=== PATIENT | female | born 1960 | race Caucasian/White ===

== ENCOUNTER 2018-12-05 18:42 | Inpatient (IN) | payer BC ==
[2018-12-05] MEDS ORDERED: Ondansetron 4 MG/2 ML SDV IVPUSH ONE ×2 (19:39→20:50)
[2018-12-05] MEDS ORDERED: HYDROmorphone 1 MG/ML Syringe IVPUSH ONE ×2 (19:39→20:50)
--- NOTE | 2018-12-05 20:08 | EDM.PDOC ---
ED HPI GENERAL MEDICAL PROBLEM - General Chief Complaint: Abdominal Pain Stated Complaint: ABDOMINAL PAIN Time Seen by Provider: 12/05/18 19:25 Source of Information: Reports: Patient, Family History Limitations: Reports: No Limitations - History of Present Illness INITIAL COMMENTS - FREE TEXT/NARRATIVE: This is a 58-year-old female. [place] and she apparently has had several episodes of lower abdominal pain that seemed to come and go. Then since last night it has come and continued to come. She is having nausea and vomiting since this afternoon. She has a history of diverticulitis in the past and it feels like diverticulitis to her now. She thinks she's had some fever that was not been documented and she is also had some chills. She's had a normal bowel movement today with no blood. She still has her gallbladder and she still has her appendix. She complains of abdominal pain severe that comes and goes with severe cramping and between all across the lower abdomen. She is in moderate distress. Lower Abdomen Pain Score (Numeric/FACES): 10 - Related Data Allergies Allergy/AdvReac Type Severity Reaction Status Date / Time Sulfa (Sulfonamide Allergy Rash Verified 12/05/18 19:14 Antibiotics) hydromorphone [From Dilaudid] AdvReac Hypotension Verified 12/06/18 01:20 Home Meds: Home Meds Aspirin 81 mg PO DAILY 08/08/15 [History] Levothyroxine Sodium [Synthroid] 50 mcg PO ACBREAKFAST 08/08/15 [History] Lisinopril/Hydrochlorothiazide [Lisinopril-Hctz 10-12.5 mg Tab] 10 - 12.5 mg PO DAILY 08/08/15 [History] Omeprazole [Prilosec] 20 mg PO DAILY 08/08/15 [History] Ondansetron [Zofran ODT] 4 mg PO Q6H PRN #20 tab.dis 08/08/15 [Rx] Simvastatin [Zocor] 20 mg PO DAILY 08/08/15 [History] Psyllium Husk [Metamucil] 1 cap PO DAILY 08/18/15 [History] Past Medical History HEENT History: Reports: Impaired Vision Other HEENT History: wears eyeglasses Cardiovascular History: Reports: High Cholesterol, Hypertension Gastrointestinal History: Reports: Diverticulosis Other Gastrointestinal History: diverticulitis Dx'd 10 days ago--no prior Hx of. 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: Musculoskeletal History: Reports: Back Pain, Chronic Other Musculoskeletal History: spurs on back Endocrine/Metabolic History: Reports: Hypothyroidism - Infectious Disease History Infectious Disease History: Reports: Chicken Pox, Mumps - Past Surgical History GI Surgical History: Reports: Colonoscopy, EGD Female Surgical History: Reports: Hysterectomy Social & Family History - Family History Family Medical History: Noncontributory - Tobacco Use Smoking Status *Q: Never Smoker - Caffeine Use Caffeine Use: Reports: Coffee - Recreational Drug Use Recreational Drug Use: No - Living Situation & Occupation Living situation: Reports: with Spouse ED ROS GENERAL - Review of Systems Review Of Systems: See Below Constitutional: Reports: Fever, Chills HEENT: Reports: No Symptoms Respiratory: Reports: No Symptoms Cardiovascular: Reports: No Symptoms Endocrine: Reports: No Symptoms GI/Abdominal: Reports: Abdominal Pain, Anorexia, Nausea, Vomiting. Denies: Black Stool, Bloody Stool : Reports: No Symptoms Musculoskeletal: Reports: No Symptoms Skin: Reports: No Symptoms Neurological: Reports: No Symptoms Psychiatric: Reports: No Symptoms Hematologic/Lymphatic: Reports: No Symptoms ED EXAM, GI/ABD - Physical Exam Exam: See Below Exam Limited By: No Limitations General Appearance: Alert, WD/WN, Moderate Distress Eyes: Bilateral: Normal Appearance Ears: Normal External Exam Nose: Normal Inspection Throat/Mouth: Normal Inspection, Normal Lips, Normal Voice, No Airway Compromise Head: Normocephalic Neck: Supple Respiratory/Chest: No Respiratory Distress, Lungs Clear, Normal Breath Sounds Cardiovascular: Regular Rate, Rhythm, No Murmur GI/Abdominal Exam: No Distention, Other (She is not distended, she has no bowel sounds, the upper abdomen is not significantly tender though she does have guarding, the lower abdomen she does have guarding and I cannot determine rebound due to her guarding, she tends to lay down with her legs flexed for comfort or she sits up and bends over to keep her abdomen from stretching.) Back Exam: Full Range of Motion Extremities: Normal Inspection, Normal Range of Motion Neurological: Alert, Oriented Psychiatric: Anxious Skin Exam: Warm, Dry EKG INTERPRETATION EKG Date: 12/05/18 Time: 23:00 EKG Interpretation Comments: EKG shows a sinus rhythm rate of 68. I do not believe there is an old inferior IA or anterior infarct since these are not Q waves in the leads. Comparing it to an EKG from 2015 the morphology looks the same other than lead placement. I do not see any acute ST or T-wave changes and I do not see any ischemia noted. Course - Vital Signs Last Recorded V/S: Last Vital Signs Temp 97.4 F 12/06/18 00:45 Pulse 92 12/05/18 19:11 Resp 12 12/06/18 03:46 BP 96/57 L 12/06/18 03:46 Pulse Ox 96 12/06/18 03:46 - Orders/Labs/Meds Orders: Active Orders 24 hr Category Date Time Status Admission Status [Patient Status] [ADT] Routine ADT 12/05/18 23:47 Active Oxygen Therapy, ED [RC] ASDIRECTED Care 12/05/18 20:27 Active Abdomen Pelvis w Cont [CT] Stat Exams 12/05/18 20:03 Taken Chest 1V Frontal [CR] Stat Exams 12/05/18 22:48 Taken CULTURE BLOOD [BC] Stat Lab 12/05/18 20:03 Received CULTURE BLOOD [BC] Stat Lab 12/05/18 20:10 Received PROCALCITONIN [REF] Stat Lab 12/05/18 20:05 Received Norepinephrine [Levophed] 4 mg Med 12/05/18 23:45 Active Dextrose 5% in Water 246 ml IV TITRATE Piperacillin/Tazobactam [Piperacil-Tazobact] 4.5 gm Med 12/05/18 22:15 Active Sodium Chloride 0.9% [Normal Saline] 100 ml IV Q8H Blood Culture x2 Reflex Set [OM.PC] Stat Oth 12/05/18 19:40 Ordered Medication Orders Fentanyl (Sublimaze) 50 mcg IVPUSH Q1H PRN PRN Reason: Pain Last Admin: 12/06/18 02:22 Dose: 50 mcg Admin: 12/06/18 00:35 Dose: 50 mcg Piperacillin Sod/Tazobactam (Sod 4.5 gm/ Sodium Chloride) 100 mls @ 25 mls/hr IV Q8H KELLI Last Admin: 12/05/18 22:25 Dose: 25 mls/hr Norepinephrine Bitartrate 4 mg (/ Dextrose/Water) 250 mls @ 7.5 mls/hr IV TITRATE KELLI; Protocol Last Titration: 12/06/18 03:43 Dose: 2.93 mcg/min, 11 mls/hr Titration: 12/06/18 03:32 Dose: 2.66 mcg/min, 10 mls/hr Titration: 12/06/18 02:47 Dose: 2.4 mcg/min, 9 mls/hr Titration: 12/06/18 01:31 Dose: 2.13 mcg/min, 8 mls/hr Titration: 12/06/18 01:07 Dose: 7 mcg/min, 26.25 mls/hr Titration: 12/06/18 00:46 Dose: 6 mcg/min, 22.5 mls/hr Titration: 12/06/18 00:30 Dose: 5 mcg/min, 18.75 mls/hr Titration: 12/06/18 00:22 Dose: 4 mcg/min, 15 mls/hr Titration: 12/06/18 00:16 Dose: 3 mcg/min, 11.25 mls/hr Admin: 12/06/18 00:08 Dose: 2 mcg/min, 7.5 mls/hr Sodium Chloride (Normal Saline) 1,000 mls @ 50 mls/hr IV ASDIRECTED KELLI Last Infusion: 12/06/18 01:13 Dose: 100 mls/hr Admin: 12/06/18 00:20 Dose: 50 mls/hr Ketorolac Tromethamine (Toradol) 30 mg IVPUSH ONETIME PRN PRN Reason: Pain Labs: Laboratory Tests 12/05/18 12/05/18 12/05/18 Range/Units 20:03 20:03 20:03 WBC 8.23 (3.98-10.04) K/mm3 RBC 4.17 (3.98-5.22) M/mm3 Hgb 11.4 (11.2-15.7) gm/L Hct 35.4 (34.1-44.9) % MCV 84.9 (79.4-94.8) fl MCH 27.3 (25.6-32.2) pg MCHC 32.2 (32.2-35.5) g/dl RDW Std Deviation 44.0 (36.4-46.3) fL Plt Count 271 (182-369) K/mm3 MPV 9.1 L (9.4-12.3) fl Neut % (Auto) 88.5 H (34.0-71.1) % Lymph % (Auto) 7.3 L (19.3-51.7) % Howard % (Auto) 3.8 L (4.7-12.5) % Eos % (Auto) 0.2 L (0.7-5.8) Baso % (Auto) 0.1 (0.1-1.2) % Neut # (Auto) 7.28 H (1.56-6.13) K/mm3 Lymph # (Auto) 0.60 L (1.18-3.74) K/mm3 Howard # (Auto) 0.31 (0.24-0.36) K/mm3 Eos # (Auto) 0.02 L (0.04-0.36) K/mm3 Baso # (Auto) 0.01 (0.01-0.08) K/mm3 Manual Slide Review Abnormal smear D-Dimer, Quantitative (0.19-0.50) mg/L Sodium 139 (136-145) mEq/L Potassium 3.5 (3.5-5.1) mEq/L Chloride 103 (98-107) mEq/L Carbon Dioxide 26 (21-32) mEq/L Anion Gap 13.5 (5-15) BUN 14 (7-18) mg/dL Creatinine 0.9 (0.55-1.02) mg/dL Est Cr Clr Drug Dosing 62.23 mL/min Estimated GFR (MDRD) > 60 (>60) mL/min BUN/Creatinine Ratio 15.6 (14-18) Glucose 109 H (74-106) mg/dL Lactic Acid 0.9 (0.4-2.0) mmol/L Calcium 8.9 (8.5-10.1) mg/dL Total Bilirubin 0.4 (0.2-1.0) mg/dL AST 28 (15-37) U/L ALT 30 (14-59) U/L Alkaline Phosphatase 64 (46-116) U/L Troponin I (0.00-0.056) ng/mL C-Reactive Protein 2.0 H* (<1.0) mg/dL Total Protein 6.9 (6.4-8.2) g/dl Albumin 3.8 (3.4-5.0) g/dl Globulin 3.1 gm/dL Albumin/Globulin Ratio 1.2 (1-2) Lipase 203 (73-393) U/L Urine Color (Yellow) Urine Appearance (Clear) Urine pH (5.0-8.0) Ur Specific [place] (1.005-1.030) Urine Protein (Negative) Urine Glucose (UA) (Negative) Urine Ketones (Negative) Urine Occult Blood (Negative) Urine Nitrite (Negative) Urine Bilirubin (Negative) Urine Urobilinogen (0.2-1.0) Ur Leukocyte Esterase (Negative) Urine RBC (0-5) /hpf Urine WBC (0-5) /hpf Ur Epithelial Cells (0-5) /hpf Urine Bacteria (FEW) /hpf Urine Mucus (FEW) /hpf 12/05/18 12/05/18 12/05/18 Range/Units 20:05 20:05 20:15 WBC (3.98-10.04) K/mm3 RBC (3.98-5.22) M/mm3 Hgb (11.2-15.7) gm/L Hct (34.1-44.9) % MCV (79.4-94.8) fl MCH (25.6-32.2) pg MCHC (32.2-35.5) g/dl RDW Std Deviation (36.4-46.3) fL Plt Count (182-369) K/mm3 MPV (9.4-12.3) fl Neut % (Auto) (34.0-71.1) % Lymph % (Auto) (19.3-51.7) % Howard % (Auto) (4.7-12.5) % Eos % (Auto) (0.7-5.8) Baso % (Auto) (0.1-1.2) % Neut # (Auto) (1.56-6.13) K/mm3 Lymph # (Auto) (1.18-3.74) K/mm3 Howard # (Auto) (0.24-0.36) K/mm3 Eos # (Auto) (0.04-0.36) K/mm3 Baso # (Auto) (0.01-0.08) K/mm3 Manual Slide Review D-Dimer, Quantitative 0.55 H (0.19-0.50) mg/L Sodium (136-145) mEq/L Potassium (3.5-5.1) mEq/L Chloride (98-107) mEq/L Carbon Dioxide (21-32) mEq/L Anion Gap (5-15) BUN (7-18) mg/dL Creatinine (0.55-1.02) mg/dL Est Cr Clr Drug Dosing mL/min Estimated GFR (MDRD) (>60) mL/min BUN/Creatinine Ratio (14-18) Glucose (74-106) mg/dL Lactic Acid (0.4-2.0) mmol/L Calcium (8.5-10.1) mg/dL Total Bilirubin (0.2-1.0) mg/dL AST (15-37) U/L ALT (14-59) U/L Alkaline Phosphatase (46-116) U/L Troponin I < 0.017 (0.00-0.056) ng/mL C-Reactive Protein (<1.0) mg/dL Total Protein (6.4-8.2) g/dl Albumin (3.4-5.0) g/dl Globulin gm/dL Albumin/Globulin Ratio (1-2) Lipase (73-393) U/L Urine Color Yellow (Yellow) Urine Appearance Slt cloudy H (Clear) Urine pH 7.5 (5.0-8.0) Ur Specific [place] 1.015 (1.005-1.030) Urine Protein 1+ H (Negative) Urine Glucose (UA) Negative (Negative) Urine Ketones Trace H (Negative) Urine Occult Blood 1+ H (Negative) Urine Nitrite Negative (Negative) Urine Bilirubin Negative (Negative) Urine Urobilinogen 0.2 (0.2-1.0) Ur Leukocyte Esterase Negative (Negative) Urine RBC 20-30 H (0-5) /hpf Urine WBC 0-5 (0-5) /hpf Ur Epithelial Cells 0-5 (0-5) /hpf Urine Bacteria Few H (FEW) /hpf Urine Mucus Not seen (FEW) /hpf Meds: Medications Generic Name Dose Route Start Last Admin Trade Name Freq PRN Reason Stop Dose Admin Fentanyl 50 mcg 12/06/18 00:40 12/06/18 02:22 Sublimaze IVPUSH 50 mcg Q1H PRN Administration Pain Piperacillin Sod/Tazobactam 100 mls @ 25 mls/hr 12/05/18 22:15 12/05/18 22:25 Sod 4.5 gm/ Sodium Chloride IV 25 mls/hr Q8H KELLI Administration Norepinephrine Bitartrate 4 mg 250 mls @ 7.5 mls/hr 12/05/18 23:45 12/06/18 03:43 / Dextrose/Water IV 2.93 mcg/min TITRATE KELLI 11 mls/hr Titration Protocol 2 MCG/MIN Sodium Chloride 1,000 mls @ 50 mls/hr 12/06/18 00:30 12/06/18 01:13 Normal Saline IV 100 mls/hr ASDIRECTED KELLI Infusion Ketorolac Tromethamine 30 mg 12/06/18 04:14 Toradol IVPUSH ONETIME PRN Pain Discontinued Medications Generic Name Dose Route Start Last Admin Trade Name Freq PRN Reason Stop Dose Admin Fentanyl Confirm 12/06/18 00:34 12/06/18 00:59 Sublimaze Administered 12/06/18 00:35 Not Given Dose 100 mcg .ROUTE .STK-MED ONE Hydromorphone HCl 1 mg 12/05/18 19:39 12/05/18 20:00 Dilaudid IVPUSH 12/05/18 19:40 1 mg ONETIME ONE Administration Hydromorphone HCl 1 mg 12/05/18 20:50 12/05/18 20:59 Dilaudid IVPUSH 12/05/18 20:51 1 mg ONETIME ONE Administration Sodium Chloride 1,000 mls @ 500 mls/hr 12/05/18 19:45 12/05/18 21:31 Normal Saline IV Infused ASDIRECTED KELLI Infusion Sodium Chloride 1,000 mls @ 500 mls/hr 12/05/18 22:00 12/05/18 23:20 Normal Saline IV 999 mls/hr ASDIRECTED KELLI Infusion Sodium Chloride 1,000 mls @ 999 mls/hr 12/05/18 23:10 12/05/18 23:10 Normal Saline IV 12/06/18 00:10 999 mls/hr ONETIME ONE Administration Iopamidol 100 ml 12/05/18 20:27 Isovue-370 (76%) IV 12/05/18 20:28 ONETIME ONE Ketorolac Tromethamine 30 mg 12/05/18 21:37 12/05/18 21:49 Toradol IVPUSH 12/05/18 21:38 30 mg ONETIME ONE Administration Naloxone HCl 0.2 mg 12/05/18 23:40 12/05/18 23:43 Narcan IVPUSH 12/05/18 23:41 0.2 mg ONETIME ONE Administration Ondansetron HCl 4 mg 12/05/18 19:39 12/05/18 20:00 Zofran IVPUSH 12/05/18 19:40 4 mg ONETIME ONE Administration Ondansetron HCl 4 mg 12/05/18 20:50 12/05/18 21:26 Zofran IVPUSH 12/05/18 20:51 Not Given ONETIME ONE - Radiology Interpretation Free Text/Narrative:: CT scan suggests a lot of diverticulosis and when I called the radiologist to relook at the lower abdomen and sigmoid colon he felt like she could have some swelling going on and possibly diverticulitis though it is somewhat early. Chest x-ray suggests maybe a slight infiltrate in the right base. I've no comparative films to look at. She does have a hiatal hernia with gastric content but her heart size does appear to be larger than normal. - Re-Assessments/Exams Free Text/Narrative Re-Assessment/Exam: 12/05/18 21:50 Inside believe that her clinical picture suggests diverticulitis I'm going to treat her like diverticulitis. I think it be best to put her in the hospital overnight and give her IV antibiotics and she's having problems with nausea and vomiting even though we have calmed her pain down. Her pain is in the lower abdomen typically where she has diverticulitis and she is running a low-grade fever. 12/05/18 22:09 I spoke to the radiologist again regarding her CT scan and he thinks that possibly she might have diverticulitis though it is not super apparent on the CT scan. I spoke to the family indicating that the numbers might not get her into the hospital and have her insurance pay but I'm going to give her some Zosyn IV and her blood pressures running about 89/59 and really give her some fluids and watch her for a little bit if her blood pressure doesn't come up and will consider putting her in observation overnight but if she seems to do okay we will discharge her home with some Augmentin and something for pain. We will watch her here for a while. 12/05/18 23:42 I have rechecked her records and I found a note where she had a hypotensive episode due to Dilaudid. When he tries 0 point to Narcan to see if that doesn't count of bump up her blood pressure and increase her mental status. I am concerned about her not responding to fluids were given her at least 2 L. I did give her some Zofran 4.5 g to start with because I believe she has early diverticulitis. I spoke to the family regarding her symptoms and her reaction to Dilaudid and they feel more comfortable putting her in the ICU as well. I did speak to Dr. Gant and he is willing to admit the patient to the ICU for further evaluation and treatment. 12/06/18 00:07 Started her on a norepinephrine drip to titrate the blood pressure to greater than 100 systolic. Once that occurs we'll back off both the IVs to 50 mL per hour and continue to monitor her blood pressures. I have written bridging orders for the patient for admission to the ICU. I have spoken with the family members and they're good with this plan. I am concerned because I don't know if this is a complete picture of the hypotension related to the Dilaudid IV or if she also has an early diverticulitis so we'll repeat the blood work in the morning as well as the C reactive protein and the lactic acid. Departure - Departure Time of Disposition: 00:30 Disposition: Admitted As Inpatient 64 Condition: Serious Clinical Impression: Hypoxemia, Sigmoid diverticulitis, Cardiomegaly Altered mental status Qualifiers: Altered mental status type: somnolence Qualified Code(s): R40.0 - Somnolence Abdominal pain Qualifiers: Abdominal location: left lower quadrant Qualified Code(s): R10.32 - Left lower quadrant pain Hypotension Qualifiers: Hypotension type: unspecified hypotension type Qualified Code(s): I95.9 - Hypotension, unspecified - Discharge Information ED Communication - ED Communication Date/Time Date: 12/05/18 Time Called: 23:47 - Discussed Case With (1) Discussed Case With (1): Admitting Provider Person/s Notified (1): Belle Gant (He will admitted to the ICU) - My Orders Last 24 Hours: My Active Orders 12/05/18 19:40 Blood Culture x2 Reflex Set [OM.PC] Stat 12/05/18 20:03 Abdomen Pelvis w Cont [CT] Stat CULTURE BLOOD [BC] Stat 12/05/18 20:05 PROCALCITONIN [REF] Stat 12/05/18 20:10 CULTURE BLOOD [BC] Stat 12/05/18 20:27 Oxygen Therapy, ED [RC] ASDIRECTED 12/05/18 22:15 Piperacillin/Tazobactam [Piperacil-Tazobact] 4.5 gm Sodium Chloride 0.9% [ Normal Saline] 100 ml IV Q8H 12/05/18 22:48 Chest 1V Frontal [CR] Stat 12/05/18 23:45 Norepinephrine [Levophed] 4 mg Dextrose 5% in Water 246 ml IV TITRATE 12/05/18 23:47 Admission Status [Patient Status] [ADT] Routine - Assessment/Plan Last 24 Hours: My Active Orders 12/05/18 19:40 Blood Culture x2 Reflex Set [OM.PC] Stat 12/05/18 20:03 Abdomen Pelvis w Cont [CT] Stat CULTURE BLOOD [BC] Stat 12/05/18 20:05 PROCALCITONIN [REF] Stat 12/05/18 20:10 CULTURE BLOOD [BC] Stat 12/05/18 20:27 Oxygen Therapy, ED [RC] ASDIRECTED 12/05/18 22:15 Piperacillin/Tazobactam [Piperacil-Tazobact] 4.5 gm Sodium Chloride 0.9% [ Normal Saline] 100 ml IV Q8H 12/05/18 22:48 Chest 1V Frontal [CR] Stat 12/05/18 23:45 Norepinephrine [Levophed] 4 mg Dextrose 5% in Water 246 ml IV TITRATE 12/05/18 23:47 Admission Status [Patient Status] [ADT] Routine
[2018-12-05] MEDS: Sodium Chloride 0.9% 1,000 ML IV SCH ×2 (20:12→21:50)
[2018-12-05] MEDS ORDERED: Iopamidol 755 Mg/ML 200 ML Bottle IV ONE (20:27)
[2018-12-05] MEDS ORDERED: Ketorolac 30 MG/ML SDV IVPUSH ONE (21:37)
[2018-12-05] MEDS ORDERED: Sodium Chloride 0.9% 1,000 ML IV SCH (22:00)
[2018-12-05] MEDS: Piperacillin/Tazobactam 4.5 GM in Sodium Chloride 0.9% 100 ML IV SCH (22:25)
[2018-12-05] MEDS ORDERED: Sodium Chloride 0.9% 1,000 ML IV ONE (23:10)
[2018-12-05] MEDS ORDERED: Naloxone 0.4 MG/ML SDV IVPUSH ONE (23:40)
[2018-12-06] MEDS: Norepinephrine 4 MG in Dextrose 5% in Water 246 ML IV SCH ×4 (00:08→07:18)
[2018-12-06] MEDS ORDERED: Sodium Chloride 0.9% 1,000 ML IV SCH ×2 (00:30→06:30)
[2018-12-06] MEDS ORDERED: fentaNYL 100 MCG/2 ML SDV ONE (00:34)
[2018-12-06] MEDS: fentaNYL 100 MCG/2 ML SDV IVPUSH PRN ×2 (00:35→02:22)
[2018-12-06] MEDS ORDERED: Ketorolac 30 MG/ML SDV IVPUSH PRN (04:14)
[2018-12-06] MEDS: Piperacillin/Tazobactam 4.5 GM in Sodium Chloride 0.9% 100 ML IV SCH ×3 (06:00→22:00)
[2018-12-06] MEDS ORDERED: Ondansetron 4 MG/2 ML SDV IVPUSH PRN (07:53)
[2018-12-06] MEDS ORDERED: Acetaminophen 325 MG Tab PO PRN (07:53)
--- NOTE | 2018-12-06 09:27 | CR ---
Chest: Portable view of the chest was obtained. Comparison: Prior chest x-ray of 12/05/18. Heart is mildly enlarged. Large hiatal hernia seen. Lungs are clear with no acute parenchymal change. Bony structures are grossly intact. Impression: 1. Incidental findings as noted above. Nothing acute is seen. No change is seen from previous study. Diagnostic code #2
[2018-12-06] MEDS ORDERED: NS + KCl 20mEq/L 1,000 ML IV SCH (12:45)
--- NOTE | 2018-12-06 16:52 | PCM.HP ---
H&P History of Present Illness - General Date of Service: 12/06/18 Admit Problem/Dx: Admission Diagnosis/Problem Admission Diagnosis/Problem Hypotension Source of Information: Patient, Family, Provider - History of Present Illness Initial Comments - Free Text/Narative: 58-year-old female comes in after having severe lower abdominal pain. Patient states that this morning her pain was sharp, severe, and nothing made it better. She states that on she did have some pain but it resolved. She complains of nausea and vomiting, but not diarrhea, or constipation. She's had no hematochezia, melena, or hematemesis. She did just get back last week, on Saturday, from [place] the [place] She did have a subjective fever. She also complained of some chills. Bowel movement was normal without blood. Her primary care provider felt that she may be developing a diverticulitis so he called in antibiotics. She only had one dose, but she vomited that up. In the emergency room she presented in severe pain and couldn't sit or stand straight. CT scan was performed which showed extensive diverticulosis, but no diverticulitis. There was question about some bowel edema. White count 8.23, hemoglobin 11.4, platelets 271, and like a gas to 0.9. CMP was normal and symmetric protein was 2.0. Troponin was negative and d-dimer was only minimally elevated at 0.55. Patient was given Dilaudid for pain. Patient subsequently had decrease in blood pressure. She was given 2 L of fluid without significant improvement. Patient was then transferred to the unit and put on a norepinephrine drip. She was given fentanyl for pain and that also caused her blood pressure to drop. Ultimately, it was felt that the narcotics may contribute somewhat to her low blood pressure, but it is not likely the actual cause. Currently patient is doing well with only minimal lower abdominal pain. Lower Abdomen Pain Score (Numeric/FACES): 10 - Related Data Allergies/Adverse Reactions: Allergies Allergy/AdvReac Type Severity Reaction Status Date / Time Sulfa (Sulfonamide Allergy Rash Verified 12/05/18 19:14 Antibiotics) hydromorphone [From Dilaudid] AdvReac Hypotension Verified 12/06/18 01:20 Home Medications: Home Meds Aspirin 81 mg PO DAILY 08/08/15 [History] Levothyroxine Sodium [Synthroid] 50 mcg PO ACBREAKFAST 08/08/15 [History] Lisinopril/Hydrochlorothiazide [Lisinopril-Hctz 10-12.5 mg Tab] 10 - 12.5 mg PO DAILY 08/08/15 [History] Omeprazole [Prilosec] 20 mg PO DAILY 08/08/15 [History] Ondansetron [Zofran ODT] 4 mg PO Q6H PRN #20 tab.dis 08/08/15 [Rx] Simvastatin [Zocor] 20 mg PO DAILY 08/08/15 [History] Psyllium Husk [Metamucil] 1 cap PO DAILY 08/18/15 [History] Past Medical History HEENT History: Reports: Impaired Vision Other HEENT History: wears eyeglasses Cardiovascular History: Reports: High Cholesterol, Hypertension Gastrointestinal History: Reports: Diverticulosis Other Gastrointestinal History: diverticulitis Dx'd 10 days ago--no prior Hx of. 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: Musculoskeletal History: Reports: Back Pain, Chronic Other Musculoskeletal History: spurs on back Endocrine/Metabolic History: Reports: Hypothyroidism - Infectious Disease History Infectious Disease History: Reports: Chicken Pox, Mumps - Past Surgical History GI Surgical History: Reports: Colonoscopy, EGD Female Surgical History: Reports: Hysterectomy Social & Family History - Family History Family Medical History: Noncontributory - Tobacco Use Smoking Status *Q: Never Smoker - Caffeine Use Caffeine Use: Reports: Coffee - Recreational Drug Use Recreational Drug Use: No - Living Situation & Occupation Living situation: Reports: with Spouse H&P Review of Systems - Review of Systems: Review Of Systems: ROS reveals no pertinent complaints other than HPI. Exam - Exam Exam: See Below - Vital Signs Vital Signs: Last Vital Signs Temp 98.0 F 12/06/18 16:00 Pulse 57 L 12/06/18 08:00 Resp 14 12/06/18 16:00 BP 98/68 12/06/18 16:00 Pulse Ox 94 L 12/06/18 16:00 Weight: 183 lb 11.2 oz - Exam Quality Assessment: Supplemental Oxygen General: Alert, Oriented HEENT: Conjunctiva Clear, EACs Clear, Mucosa Moist & Carman, Posterior Pharynx Clear Neck: Supple, Trachea Midline Lungs: Normal Respiratory Effort, Crackles (Bibasilar) Cardiovascular: Regular Rate, Regular Rhythm, Normal S1, Normal S2. No: Systolic Murmur GI/Abdominal Exam: Normal Bowel Sounds, Soft, Non-Tender, No Organomegaly, No Distention, No Mass Back Exam: Normal Inspection Extremities: Normal Inspection, Normal Range of Motion, Non-Tender, No Pedal Edema, Normal Capillary Refill Skin: Warm, Dry Neuro Extensive - Mental Status: Alert, Oriented x3, Normal Mood/Affect, Normal Cognition Neuro Extensive - Motor, Sensory, Reflexes: CN II-XII Intact Psychiatric: Alert, Normal Affect, Normal Mood - Patient Data Lab Results Last 24 hrs: Laboratory Results - last 24 hr 12/05/18 12/05/18 12/05/18 Range/Units 20:03 20:03 20:03 WBC 8.23 (3.98-10.04) K/mm3 RBC 4.17 (3.98-5.22) M/mm3 Hgb 11.4 (11.2-15.7) gm/L Hct 35.4 (34.1-44.9) % MCV 84.9 (79.4-94.8) fl MCH 27.3 (25.6-32.2) pg MCHC 32.2 (32.2-35.5) g/dl RDW Std Deviation 44.0 (36.4-46.3) fL Plt Count 271 (182-369) K/mm3 MPV 9.1 L (9.4-12.3) fl Neut % (Auto) 88.5 H (34.0-71.1) % Lymph % (Auto) 7.3 L (19.3-51.7) % [place] % (Auto) 3.8 L (4.7-12.5) % Eos % (Auto) 0.2 L (0.7-5.8) Baso % (Auto) 0.1 (0.1-1.2) % Neut # (Auto) 7.28 H (1.56-6.13) K/mm3 Lymph # (Auto) 0.60 L (1.18-3.74) K/mm3 [place] # (Auto) 0.31 (0.24-0.36) K/mm3 Eos # (Auto) 0.02 L (0.04-0.36) K/mm3 Baso # (Auto) 0.01 (0.01-0.08) K/mm3 Manual Slide Review Abnormal smear D-Dimer, Quantitative (0.19-0.50) mg/L Sodium 139 (136-145) mEq/L Potassium 3.5 (3.5-5.1) mEq/L Chloride 103 (98-107) mEq/L Carbon Dioxide 26 (21-32) mEq/L Anion Gap 13.5 (5-15) BUN 14 (7-18) mg/dL Creatinine 0.9 (0.55-1.02) mg/dL Est Cr Clr Drug Dosing 62.23 mL/min Estimated GFR (MDRD) > 60 (>60) mL/min BUN/Creatinine Ratio 15.6 (14-18) Glucose 109 H (74-106) mg/dL Lactic Acid 0.9 (0.4-2.0) mmol/L Calcium 8.9 (8.5-10.1) mg/dL Total Bilirubin 0.4 (0.2-1.0) mg/dL AST 28 (15-37) U/L ALT 30 (14-59) U/L Alkaline Phosphatase 64 (46-116) U/L Troponin I (0.00-0.056) ng/mL C-Reactive Protein 2.0 H* (<1.0) mg/dL Total Protein 6.9 (6.4-8.2) g/dl Albumin 3.8 (3.4-5.0) g/dl Globulin 3.1 gm/dL Albumin/Globulin Ratio 1.2 (1-2) Lipase 203 (73-393) U/L Urine Color (Yellow) Urine Appearance (Clear) Urine pH (5.0-8.0) Ur Specific [place] (1.005-1.030) Urine Protein (Negative) Urine Glucose (UA) (Negative) Urine Ketones (Negative) Urine Occult Blood (Negative) Urine Nitrite (Negative) Urine Bilirubin (Negative) Urine Urobilinogen (0.2-1.0) Ur Leukocyte Esterase (Negative) Urine RBC (0-5) /hpf Urine WBC (0-5) /hpf Ur Epithelial Cells (0-5) /hpf Urine Bacteria (FEW) /hpf Urine Mucus (FEW) /hpf 12/05/18 12/05/18 12/05/18 Range/Units 20:05 20:05 20:15 WBC (3.98-10.04) K/mm3 RBC (3.98-5.22) M/mm3 Hgb (11.2-15.7) gm/L Hct (34.1-44.9) % MCV (79.4-94.8) fl MCH (25.6-32.2) pg MCHC (32.2-35.5) g/dl RDW Std Deviation (36.4-46.3) fL Plt Count (182-369) K/mm3 MPV (9.4-12.3) fl Neut % (Auto) (34.0-71.1) % Lymph % (Auto) (19.3-51.7) % [place] % (Auto) (4.7-12.5) % Eos % (Auto) (0.7-5.8) Baso % (Auto) (0.1-1.2) % Neut # (Auto) (1.56-6.13) K/mm3 Lymph # (Auto) (1.18-3.74) K/mm3 [place] # (Auto) (0.24-0.36) K/mm3 Eos # (Auto) (0.04-0.36) K/mm3 Baso # (Auto) (0.01-0.08) K/mm3 Manual Slide Review D-Dimer, Quantitative 0.55 H (0.19-0.50) mg/L Sodium (136-145) mEq/L Potassium (3.5-5.1) mEq/L Chloride (98-107) mEq/L Carbon Dioxide (21-32) mEq/L Anion Gap (5-15) BUN (7-18) mg/dL Creatinine (0.55-1.02) mg/dL Est Cr Clr Drug Dosing mL/min Estimated GFR (MDRD) (>60) mL/min BUN/Creatinine Ratio (14-18) Glucose (74-106) mg/dL Lactic Acid (0.4-2.0) mmol/L Calcium (8.5-10.1) mg/dL Total Bilirubin (0.2-1.0) mg/dL AST (15-37) U/L ALT (14-59) U/L Alkaline Phosphatase (46-116) U/L Troponin I < 0.017 (0.00-0.056) ng/mL C-Reactive Protein (<1.0) mg/dL Total Protein (6.4-8.2) g/dl Albumin (3.4-5.0) g/dl Globulin gm/dL Albumin/Globulin Ratio (1-2) Lipase (73-393) U/L Urine Color Yellow (Yellow) Urine Appearance Slt cloudy H (Clear) Urine pH 7.5 (5.0-8.0) Ur Specific [place] 1.015 (1.005-1.030) Urine Protein 1+ H (Negative) Urine Glucose (UA) Negative (Negative) Urine Ketones Trace H (Negative) Urine Occult Blood 1+ H (Negative) Urine Nitrite Negative (Negative) Urine Bilirubin Negative (Negative) Urine Urobilinogen 0.2 (0.2-1.0) Ur Leukocyte Esterase Negative (Negative) Urine RBC 20-30 H (0-5) /hpf Urine WBC 0-5 (0-5) /hpf Ur Epithelial Cells 0-5 (0-5) /hpf Urine Bacteria Few H (FEW) /hpf Urine Mucus Not seen (FEW) /hpf 12/06/18 12/06/18 12/06/18 Range/Units 06:10 06:10 06:10 WBC 5.46 (3.98-10.04) K/mm3 RBC 3.63 L (3.98-5.22) M/mm3 Hgb 9.9 L D (11.2-15.7) gm/L Hct 31.3 L (34.1-44.9) % MCV 86.2 (79.4-94.8) fl MCH 27.3 (25.6-32.2) pg MCHC 31.6 L (32.2-35.5) g/dl RDW Std Deviation 44.5 (36.4-46.3) fL Plt Count 241 (182-369) K/mm3 MPV 9.0 L (9.4-12.3) fl Neut % (Auto) 74.1 H (34.0-71.1) % Lymph % (Auto) 16.3 L (19.3-51.7) % [place] % (Auto) 9.0 (4.7-12.5) % Eos % (Auto) 0.2 L (0.7-5.8) Baso % (Auto) 0.2 (0.1-1.2) % Neut # (Auto) 4.05 (1.56-6.13) K/mm3 Lymph # (Auto) 0.89 L (1.18-3.74) K/mm3 [place] # (Auto) 0.49 H (0.24-0.36) K/mm3 Eos # (Auto) 0.01 L (0.04-0.36) K/mm3 Baso # (Auto) 0.01 (0.01-0.08) K/mm3 Manual Slide Review D-Dimer, Quantitative (0.19-0.50) mg/L Sodium 141 (136-145) mEq/L Potassium 3.5 (3.5-5.1) mEq/L Chloride 107 (98-107) mEq/L Carbon Dioxide 23 (21-32) mEq/L Anion Gap 14.5 (5-15) BUN 12 (7-18) mg/dL Creatinine 0.8 (0.55-1.02) mg/dL Est Cr Clr Drug Dosing 70.01 mL/min Estimated GFR (MDRD) > 60 (>60) mL/min BUN/Creatinine Ratio 15.0 (14-18) Glucose 129 H (74-106) mg/dL Lactic Acid 0.8 (0.4-2.0) mmol/L Calcium 7.8 L (8.5-10.1) mg/dL Total Bilirubin (0.2-1.0) mg/dL AST (15-37) U/L ALT (14-59) U/L Alkaline Phosphatase (46-116) U/L Troponin I < 0.017 (0.00-0.056) ng/mL C-Reactive Protein 3.5 H* (<1.0) mg/dL Total Protein (6.4-8.2) g/dl Albumin (3.4-5.0) g/dl Globulin gm/dL Albumin/Globulin Ratio (1-2) Lipase (73-393) U/L Urine Color (Yellow) Urine Appearance (Clear) Urine pH (5.0-8.0) Ur Specific [place] (1.005-1.030) Urine Protein (Negative) Urine Glucose (UA) (Negative) Urine Ketones (Negative) Urine Occult Blood (Negative) Urine Nitrite (Negative) Urine Bilirubin (Negative) Urine Urobilinogen (0.2-1.0) Ur Leukocyte Esterase (Negative) Urine RBC (0-5) /hpf Urine WBC (0-5) /hpf Ur Epithelial Cells (0-5) /hpf Urine Bacteria (FEW) /hpf Urine Mucus (FEW) /hpf Result Diagrams: 12/06/18 06:10 12/06/18 06:10 - Problem List (1) Abdominal pain SNOMED Code(s): 52803238 ICD Code: R10.9 - UNSPECIFIED ABDOMINAL PAIN Status: Acute Current Visit : Yes Qualifiers: Abdominal location: left lower quadrant Qualified Code(s): R10.32 - Left lower quadrant pain (2) Hypotension SNOMED Code(s): 81020533 ICD Code: I95.9 - HYPOTENSION, UNSPECIFIED Status: Acute Current Visit: Yes Qualifiers: Hypotension type: unspecified hypotension type Qualified Code(s): I95.9 - Hypotension, unspecified (3) Sigmoid diverticulitis SNOMED Code(s): 790577132 ICD Code: K57.32 - DVTRCLI OF LG INT W/O PERFORATION OR ABSCESS W/O BLEEDING Status: Acute Current Visit: Yes Problem List Initiated/Reviewed/Updated: Yes Orders Last 24hrs: Active Orders 24 hr Category Date Time Status Admission Status [Patient Status] [ADT] Routine ADT 12/05/18 23:47 Active Activity as Tolerated [RC] .Routine Care 12/06/18 15:27 Active Bedrest [RC] ASDIRECTED Care 12/06/18 01:08 Active EKG 12 Lead [EKG Documentation Completion] [RC] STAT Care 12/05/18 23:00 Active Oxygen Therapy, ED [RC] ASDIRECTED Care 12/05/18 20:27 Active Full Liquid Diet [DIET] Diet 12/06/18 Breakfast Active Abdomen Pelvis w Cont [CT] Stat Exams 12/05/18 20:03 Taken Chest 1V Frontal [CR] Stat Exams 12/05/18 22:48 Taken C-REACTIVE PROTEIN [CHEM] AM Lab 12/07/18 05:11 Ordered CBC WITH AUTO DIFF [HEME] AM Lab 12/07/18 05:11 Ordered CMP [COMPREHENSIVE METABOLIC PN,CMP] [CHEM] AM Lab 12/07/18 05:11 Ordered CULTURE BLOOD [BC] Stat Lab 12/05/18 20:03 Received CULTURE BLOOD [BC] Stat Lab 12/05/18 20:10 Received MAGNESIUM [CHEM] AM Lab 12/07/18 05:11 Ordered PROCALCITONIN [REF] Stat Lab 12/05/18 20:05 Received Acetaminophen [Tylenol] Med 12/06/18 07:53 Active 650 mg PO Q4H PRN Aspirin Med 12/07/18 09:00 Active 81 mg PO DAILY Levothyroxine [Synthroid] Med 12/07/18 06:00 Active 50 mcg PO ACBREAKFAST NS + KCl 20mEq/L [Normal Saline with 20 mEq KCl] 1,000 Med 12/06/18 12:45 Active ml IV ASDIRECTED Norepinephrine [Levophed] 4 mg Med 12/05/18 23:45 Active Dextrose 5% in Water 246 ml IV TITRATE Ondansetron [Zofran] Med 12/06/18 07:53 Active 4 mg IVPUSH Q8H PRN Piperacillin/Tazobactam [Piperacil-Tazobact] 4.5 gm Med 12/05/18 22:15 Active Sodium Chloride 0.9% [Normal Saline] 100 ml IV Q8H Simvastatin [Zocor] Med 12/07/18 09:00 Active 20 mg PO DAILY Blood Culture x2 Reflex Set [OM.PC] Stat Oth 12/05/18 19:40 Ordered Code Status [Resuscitation Status] Routine Resus Stat 12/06/18 01:21 Ordered Medication Orders Acetaminophen (Tylenol) 650 mg PO Q4H PRN PRN Reason: Pain Last Admin: 12/06/18 10:33 Dose: 650 mg Aspirin (Aspirin) 81 mg PO DAILY KELLI Piperacillin Sod/Tazobactam (Sod 4.5 gm/ Sodium Chloride) 100 mls @ 25 mls/hr IV Q8H KELLI Last Admin: 12/06/18 13:41 Dose: 25 mls/hr Infusion: 12/06/18 10:00 Dose: 25 mls/hr Admin: 12/06/18 06:00 Dose: 25 mls/hr Infusion: 12/06/18 02:25 Dose: 25 mls/hr Admin: 12/05/18 22:25 Dose: 25 mls/hr Norepinephrine Bitartrate 4 mg (/ Dextrose/Water) 250 mls @ 7.5 mls/hr IV TITRATE KELLI; Protocol Last Titration: 12/06/18 11:01 Dose: 0 mcg/min, 0 mls/hr Titration: 12/06/18 10:34 Dose: 0.53 mcg/min, 2 mls/hr Titration: 12/06/18 10:04 Dose: 0.8 mcg/min, 3 mls/hr Titration: 12/06/18 09:17 Dose: 1.06 mcg/min, 4 mls/hr Titration: 12/06/18 08:53 Dose: 1.6 mcg/min, 6 mls/hr Titration: 12/06/18 08:25 Dose: 1.86 mcg/min, 7 mls/hr Titration: 12/06/18 08:01 Dose: 2.13 mcg/min, 8 mls/hr Admin: 12/06/18 07:18 Dose: 2.66 mcg/min, 10 mls/hr Titration: 12/06/18 07:18 Dose: 2.66 mcg/min, 10 mls/hr Titration: 12/06/18 06:10 Dose: 2.66 mcg/min, 10 mls/hr Titration: 12/06/18 03:43 Dose: 2.93 mcg/min, 11 mls/hr Titration: 12/06/18 03:32 Dose: 2.66 mcg/min, 10 mls/hr Titration: 12/06/18 02:47 Dose: 2.4 mcg/min, 9 mls/hr Titration: 12/06/18 01:31 Dose: 2.13 mcg/min, 8 mls/hr Titration: 12/06/18 01:07 Dose: 7 mcg/min, 26.25 mls/hr Titration: 12/06/18 00:46 Dose: 6 mcg/min, 22.5 mls/hr Titration: 12/06/18 00:30 Dose: 5 mcg/min, 18.75 mls/hr Titration: 12/06/18 00:22 Dose: 4 mcg/min, 15 mls/hr Titration: 12/06/18 00:16 Dose: 3 mcg/min, 11.25 mls/hr Admin: 12/06/18 00:08 Dose: 2 mcg/min, 7.5 mls/hr Potassium Chloride/Sodium Chloride (Normal Saline With 20 Meq Kcl) 1,000 mls @ 100 mls/hr IV ASDIRECTED [facility] Last Admin: 12/06/18 12:48 Dose: 100 mls/hr Levothyroxine Sodium (Synthroid) 50 mcg PO ACBREAKFAST KELLI Ondansetron HCl (Zofran) 4 mg IVPUSH Q8H PRN PRN Reason: Nausea Simvastatin (Zocor) 20 mg PO DAILY [facility] Assessment/Plan Comment:: Neurologic * GCS 15 * Pain controlled Cardiovascular * Levophed drip initially at 10 g an hour. We were able to wean that off over a few hours. * The arterial pressure is above 65 off of the Levophed * Capillary refill is good. * Heart is mildly enlarged on chest x-ray Pulmonary * On 1 L nasal cannula * Chest x-ray showed nothing acute * Normal respiratory rate and effort GI * Presumed diverticulitis * Advanced by mouth intake as tolerated * No peptic ulcer prophylaxis at this time * Pain is minimal. * IV Unasyn for possible diverticulitis Renal * Strict I's and O's * Normal renal function * Recheck CMP in the morning Infectious disease * Afebrile, normal white count * Continue Unasyn for presumed diverticulitis * C-reactive protein did increase from 2.0-3.5. Will recheck in the morning * Recheck CBC in the morning Hematology * Hemoglobin dropped from 11.4-9.9, likely secondary to aggressive hydration * Check CBC in the morning Family and next of kin updated. She has several family members that her physicians. CODE STATUS: Full code Plan discharge in 1-2 days.
--- NOTE | 2018-12-06 20:17 | CR ---
Chest: Portable view of the chest is obtained. Comparison: No prior chest x-ray. Heart is enlarged. Large hiatal hernia is noted. Lungs are clear with no acute parenchymal change. Bony structures are grossly intact. Impression: 1. Hiatal hernia and mild cardiomegaly. 2. Nothing acute is seen on portable chest x-ray. Diagnostic code #2 I agree with preliminary report issued by [facility] ([facility] report finalized on 12/06/18, 12:21 AM Central Time.)
--- NOTE | 2018-12-06 20:18 | CT ---
CT abdomen and pelvis Technique: Multiple axial sections were obtained from above the dome of the diaphragm inferiorly through the pubic symphysis. Intravenous contrast was utilized. No oral contrast has been given. Comparison: Previous CT abdomen and pelvis exam of 08/18/15. Findings: Small portion of the visualized lung bases show minimal atelectasis. Large hiatal hernia is seen. Fatty infiltration is noted within the liver. Spleen appears within normal limits. Gallbladder contains no calcified gallstones. Cyst is noted within the upper right kidney measuring 5.2 cm. Smaller cyst is seen slightly more inferiorly within the right kidney measuring 1.5 cm. Several minimal cortical cysts within the left kidney are seen measuring less than 1 cm. Nonobstructing stone is noted within the left kidney measuring 6 mm. Pancreas is within normal limits. Aorta shows no aneurysm. No retroperitoneal adenopathy or mesenteric abnormalities are seen. Appendix is seen which is normal. No pelvic mass or adenopathy is seen. Diverticuli are seen within the descending and sigmoid colons without diverticulitis. Incidental note is small fat-containing bilateral inguinal hernias. Delayed images show contrast within the distal ureters and within the bladder. Bone window settings were reviewed which show disc space narrowing at L5-S1 with vacuum phenomena. Lesser degenerative change is seen within other portions of the spine. Small fat-containing umbilical hernia is noted. Impression: 1. Multiple findings as noted above which are chronic. Nothing acute is appreciated. Diagnostic code #2 I agree with preliminary report issued by [facility] ([facility] report finalized on 12/05/18, 10:16 PM Central Time)
[2018-12-07] MEDS ORDERED: Levothyroxine 50 MCG Tab PO SCH (06:00)
[2018-12-07] MEDS: Piperacillin/Tazobactam 4.5 GM in Sodium Chloride 0.9% 100 ML IV SCH (06:28)
[2018-12-07] MEDS ORDERED: Magnesium Sulfate/Water 4 GM in Premix Bag 1 BAG IV ONE (07:25)
[2018-12-07] MEDS ORDERED: Simvastatin 20 MG Tab PO SCH (09:00)
[2018-12-07] MEDS ORDERED: Aspirin 81 MG Tab.Chew PO SCH (09:00)
[2018-12-07] MEDS ORDERED: Potassium Chloride 20 MEQ Tab.ER PO SCH (09:00)
[2018-12-07] MEDS ORDERED: Sodium Chloride 0.9% 0 ML ONE (09:03)
[2018-12-07] MEDS ORDERED: Sodium Chloride 0.9% 250 ML ONE (09:05)
[2018-12-07] MEDS ORDERED: Sodium Chloride 0.9% 250 ML IV ONE (09:15)
--- NOTE | 2018-12-07 12:59 | PCM.DCSUM1 ---
Discharge Summary - Hospital Course HPI Initial Comments: 58-year-old female comes in after having severe lower abdominal pain. Patient states that this morning her pain was sharp, severe, and nothing made it better. She states that on she did have some pain but it resolved. She complains of nausea and vomiting, but not diarrhea, or constipation. She's had no hematochezia, melena, or hematemesis. She did just get back last week, on Saturday, from [place] the [place] She did have a subjective fever. She also complained of some chills. Bowel movement was normal without blood. Her primary care provider felt that she may be developing a diverticulitis so he called in antibiotics. She only had one dose, but she vomited that up. In the emergency room she presented in severe pain and couldn't sit or stand straight. CT scan was performed which showed extensive diverticulosis, but no diverticulitis. There was question about some bowel edema. White count 8.23, hemoglobin 11.4, platelets 271, and like a gas to 0.9. CMP was normal and symmetric protein was 2.0. Troponin was negative and d-dimer was only minimally elevated at 0.55. Patient was given Dilaudid for pain. Patient subsequently had decrease in blood pressure. She was given 2 L of fluid without significant improvement. Patient was then transferred to the unit and put on a norepinephrine drip. She was given fentanyl for pain and that also caused her blood pressure to drop. Ultimately, it was felt that the narcotics may contribute somewhat to her low blood pressure, but it is not likely the actual cause. Currently patient is doing well with only minimal lower abdominal pain. Brief History: Patient did well over the last 24 hours. She was completely weaned off of both her IV fluids and norepinephrine. Patient has also come off of her oxygen. She is walking in the halls. She has very little lower abdominal pain. She'll be discharged home on Augmentin. Diagnosis: Stroke: No - Discharge Data Discharge Date: 12/07/18 Discharge Disposition: Home, Self-Care 01 Condition: Fair - Discharge Diagnosis/Problem(s) (1) Abdominal pain SNOMED Code(s): 12512901 ICD Code: R10.9 - UNSPECIFIED ABDOMINAL PAIN Status: Acute Current Visit : Yes Qualifiers: Abdominal location: left lower quadrant Qualified Code(s): R10.32 - Left lower quadrant pain (2) Hypotension SNOMED Code(s): 85318050 ICD Code: I95.9 - HYPOTENSION, UNSPECIFIED Status: Acute Current Visit: Yes Qualifiers: Hypotension type: unspecified hypotension type Qualified Code(s): I95.9 - Hypotension, unspecified (3) Sigmoid diverticulitis SNOMED Code(s): 745679592 ICD Code: K57.32 - DVTRCLI OF LG INT W/O PERFORATION OR ABSCESS W/O BLEEDING Status: Acute Current Visit: Yes - Patient Instructions Activity: As Tolerated Driving: May Drive Today Showering/Bathing: May Shower Notify Provider of: Fever, Increased Pain, Nausea and/or Vomiting - Discharge Plan *PRESCRIPTION DRUG MONITORING PROGRAM REVIEWED*: Not Applicable *COPY OF PRESCRIPTION DRUG MONITORING REPORT IN PATIENT TRICIA: Not Applicable Prescriptions/Med Rec: Amoxicillin/Potassium Clav [Augmentin 875-125 Tablet] 1 each PO BID 20 Days tablet Home Medications: Home Meds Aspirin 81 mg PO DAILY 08/08/15 [History] Levothyroxine Sodium [Synthroid] 50 mcg PO ACBREAKFAST 08/08/15 [History] Lisinopril/Hydrochlorothiazide [Lisinopril-Hctz 10-12.5 mg Tab] 10 - 12.5 mg PO DAILY 08/08/15 [History] Omeprazole [Prilosec] 20 mg PO DAILY 08/08/15 [History] Ondansetron [Zofran ODT] 4 mg PO Q6H PRN #20 tab.dis 08/08/15 [Rx] Simvastatin [Zocor] 20 mg PO DAILY 08/08/15 [History] Psyllium Husk [Metamucil] 1 cap PO DAILY 08/18/15 [History] Amoxicillin/Potassium Clav [Augmentin 875-125 Tablet] 1 each PO BID 20 Days tablet 12/07/18 [Rx] Oxygen Therapy Mode: Room Air Patient Handouts: Diverticulitis, [id number], Hypoxemia - Discharge Summary/Plan Comment DC Time >30 min.: Yes Discharge Summary/Plan Comment: Patient was discharged home on Augmentin 875 mg twice a day for total of 10 days. Follow up with her primary care provider. - General Info Date of Service: 12/07/18 Admission Dx/Problem (Free Text: Admission Diagnosis/Problem Admission Diagnosis/Problem Hypotension Functional Status: Reports: Pain Controlled - Review of Systems General: Reports: No Symptoms HEENT: Reports: No Symptoms Pulmonary: Reports: No Symptoms Cardiovascular: Reports: No Symptoms Gastrointestinal: Reports: No Symptoms. Denies: Abdominal Pain, Constipation Genitourinary: Reports: No Symptoms - Patient Data Vitals - Most Recent: Last Vital Signs Temp 98.2 F 12/07/18 08:05 Pulse 57 L 12/06/18 08:00 Resp 18 12/07/18 08:05 BP 129/72 12/07/18 08:05 Pulse Ox 95 12/07/18 08:21 Weight - Most Recent: 183 lb 11.2 oz I&O - Last 24 hours: Intake & Output 12/06/18 12/07/18 12/07/18 22:59 06:59 14:59 Intake Total 630 2115 120 Output Total 1350 1000 1450 Balance -720 1115 -1330 Lab Results - Last 24 hrs: Laboratory Results - last 24 hr 12/07/18 12/07/18 Range/Units 05:30 05:30 WBC 5.63 (3.98-10.04) K/mm3 RBC 3.53 L (3.98-5.22) M/mm3 Hgb 9.5 L (11.2-15.7) gm/L Hct 30.7 L (34.1-44.9) % MCV 87.0 (79.4-94.8) fl MCH 26.9 (25.6-32.2) pg MCHC 30.9 L (32.2-35.5) g/dl RDW Std Deviation 45.1 (36.4-46.3) fL Plt Count 211 (182-369) K/mm3 MPV 9.4 (9.4-12.3) fl Neut % (Auto) 66.5 (34.0-71.1) % Lymph % (Auto) 19.5 (19.3-51.7) % [place] % (Auto) 13.1 H (4.7-12.5) % Eos % (Auto) 0.7 (0.7-5.8) Baso % (Auto) 0.2 (0.1-1.2) % Neut # (Auto) 3.74 (1.56-6.13) K/mm3 Lymph # (Auto) 1.10 L (1.18-3.74) K/mm3 [place] # (Auto) 0.74 H (0.24-0.36) K/mm3 Eos # (Auto) 0.04 (0.04-0.36) K/mm3 Baso # (Auto) 0.01 (0.01-0.08) K/mm3 Sodium 142 (136-145) mEq/L Potassium 3.3 L (3.5-5.1) mEq/L Chloride 107 (98-107) mEq/L Carbon Dioxide 25 (21-32) mEq/L Anion Gap 13.3 (5-15) BUN 7 (7-18) mg/dL Creatinine 0.7 (0.55-1.02) mg/dL Est Cr Clr Drug Dosing 80.01 mL/min Estimated GFR (MDRD) > 60 (>60) mL/min BUN/Creatinine Ratio 10.0 L (14-18) Glucose 84 (74-106) mg/dL Calcium 8.1 L (8.5-10.1) mg/dL Magnesium 1.5 L (1.8-2.4) mg/dl Total Bilirubin 0.2 (0.2-1.0) mg/dL AST 20 (15-37) U/L ALT 24 (14-59) U/L Alkaline Phosphatase 46 (46-116) U/L C-Reactive Protein 3.5 H* (<1.0) mg/dL Total Protein 5.5 L (6.4-8.2) g/dl Albumin 2.9 L (3.4-5.0) g/dl Globulin 2.6 gm/dL Albumin/Globulin Ratio 1.1 (1-2) FLOR Results - Last 24 hrs: Microbiology 12/05/18 20:03 Aerobic Blood Culture - Preliminary Blood - Venous NO GROWTH AFTER 1 DAY Anaerobic Blood Culture - Preliminary NO GROWTH AFTER 1 DAY 12/05/18 20:10 Aerobic Blood Culture - Preliminary Blood - Venous - Lab Draw NO GROWTH AFTER 1 DAY Anaerobic Blood Culture - Preliminary NO GROWTH AFTER 1 DAY Med Orders - Current: Current Medications Acetaminophen (Tylenol) 650 mg PO Q4H PRN PRN Reason: Pain Last Admin: 12/06/18 10:33 Dose: 650 mg Aspirin (Aspirin) 81 mg PO DAILY KELLI Last Admin: 12/07/18 08:02 Dose: 81 mg Piperacillin Sod/Tazobactam (Sod 4.5 gm/ Sodium Chloride) 100 mls @ 25 mls/hr IV Q8H [facility] Last Admin: 12/07/18 06:28 Dose: 25 mls/hr Norepinephrine Bitartrate 4 mg (/ Dextrose/Water) 250 mls @ 7.5 mls/hr IV TITRATE KELLI; Protocol Last Titration: 12/06/18 11:01 Dose: 0 mcg/min, 0 mls/hr Sodium Chloride (Normal Saline) 250 mls @ 57 mls/hr IV ONETIME ONE Stop: 12/07/18 13:38 Last Admin: 12/07/18 09:52 Dose: 57 mls/hr Levothyroxine Sodium (Synthroid) 50 mcg PO ACBREAKFAST [facility] Last Admin: 12/07/18 06:27 Dose: 50 mcg Ondansetron HCl (Zofran) 4 mg IVPUSH Q8H PRN PRN Reason: Nausea Potassium Chloride (Klor-Con M20) 20 meq PO BID [facility] Stop: 12/07/18 21:01 Last Admin: 12/07/18 08:02 Dose: 20 meq Simvastatin (Zocor) 20 mg PO DAILY [facility] Last Admin: 12/07/18 08:02 Dose: 20 mg Discontinued Medications Fentanyl (Sublimaze) Confirm Administered Dose 100 mcg .ROUTE .STK-MED ONE Stop: 12/06/18 00:35 Last Admin: 12/06/18 00:59 Dose: Not Given Fentanyl (Sublimaze) 50 mcg IVPUSH Q1H PRN PRN Reason: Pain Last Admin: 12/06/18 02:22 Dose: 50 mcg Hydromorphone HCl (Dilaudid) 1 mg IVPUSH ONETIME ONE Stop: 12/05/18 19:40 Last Admin: 12/05/18 20:00 Dose: 1 mg Hydromorphone HCl (Dilaudid) 1 mg IVPUSH ONETIME ONE Stop: 12/05/18 20:51 Last Admin: 12/05/18 20:59 Dose: 1 mg Sodium Chloride (Normal Saline) 1,000 mls @ 500 mls/hr IV ASDIRECTED [facility] Last Infusion: 12/05/18 21:31 Dose: Infused Sodium Chloride (Normal Saline) 1,000 mls @ 500 mls/hr IV ASDIRECTED KELLI Last Infusion: 12/05/18 23:20 Dose: 999 mls/hr Sodium Chloride (Normal Saline) 1,000 mls @ 999 mls/hr IV ONETIME ONE Stop: 12/06/18 00:10 Last Admin: 12/05/18 23:10 Dose: 999 mls/hr Sodium Chloride (Normal Saline) 1,000 mls @ 50 mls/hr IV ASDIRECTED KELLI Last Infusion: 12/06/18 01:13 Dose: 100 mls/hr Sodium Chloride (Normal Saline) 1,000 mls @ 100 mls/hr IV ASDIRECTED KELLI Potassium Chloride/Sodium Chloride (Normal Saline With 20 Meq Kcl) 1,000 mls @ 100 mls/hr IV ASDIRECTED KELLI Last Admin: 12/06/18 12:48 Dose: 100 mls/hr Magnesium Sulfate 4 gm/ Premix 50 mls @ 12.5 mls/hr IV ONETIME ONE Stop: 12/07/18 11:24 Last Admin: 12/07/18 08:16 Dose: 12.5 mls/hr Sodium Chloride (Normal Saline) Confirm Administered Dose 250 mls @ as directed .ROUTE .STK-MED ONE Stop: 12/07/18 09:04 Last Admin: 12/07/18 09:51 Dose: Not Given Sodium Chloride (Normal Saline) Confirm Administered Dose 250 mls @ as directed .ROUTE .STK-MED ONE Stop: 12/07/18 09:06 Last Admin: 12/07/18 09:51 Dose: Not Given Iopamidol (Isovue-370 (76%)) 100 ml IV ONETIME ONE Stop: 12/05/18 20:28 Last Admin: 12/06/18 04:31 Dose: 100 ml Ketorolac Tromethamine (Toradol) 30 mg IVPUSH ONETIME ONE Stop: 12/05/18 21:38 Last Admin: 12/05/18 21:49 Dose: 30 mg Ketorolac Tromethamine (Toradol) 30 mg IVPUSH ONETIME PRN PRN Reason: Pain Last Admin: 12/06/18 05:53 Dose: 30 mg Naloxone HCl (Narcan) 0.2 mg IVPUSH ONETIME ONE Stop: 12/05/18 23:41 Last Admin: 12/05/18 23:43 Dose: 0.2 mg Ondansetron HCl (Zofran) 4 mg IVPUSH ONETIME ONE Stop: 12/05/18 19:40 Last Admin: 12/05/18 20:00 Dose: 4 mg Ondansetron HCl (Zofran) 4 mg IVPUSH ONETIME ONE Stop: 12/05/18 20:51 Last Admin: 12/05/18 21:26 Dose: Not Given - Exam General: Reports: Alert, Oriented HEENT: Reports: Pupils Equal, Pupils Reactive Neck: Reports: Supple Lungs: Reports: Clear to Auscultation, Normal Respiratory Effort Cardiovascular: Reports: Regular Rate, Regular Rhythm GI/Abdominal Exam: Normal Bowel Sounds, Soft, Non-Tender, No Organomegaly, No Distention Psy/Mental Status: Reports: Alert, Normal Affect, Normal Mood
[2018-12-07 14:06] VITALS: BP 136/89
== END 2018-12-07 14:05 | disposition home or self-care (01) | DRG 244 ==
LOC: JD.ED 18:42 → JD.ICU 12-06 00:11
PROVIDERS: ADMIT Family Medicine; ATTEND Family Medicine
DX: K57.32 Diverticulitis of large intestine without perforation or abscess without bleeding (principal); I95.9 Hypotension, unspecified; H54.7 Unspecified visual loss; E78.00 Pure hypercholesterolemia, unspecified; I10 Essential (primary) hypertension; M54.9 Dorsalgia, unspecified; G89.29 Other chronic pain; E03.9 Hypothyroidism, unspecified; R09.02 Hypoxemia; I51.7 Cardiomegaly; Z88.5 Allergy status to narcotic agent; Z88.2 Allergy status to sulfonamides; Z79.82 Long term (current) use of aspirin; Z90.710 Acquired absence of both cervix and uterus; Z87.442 Personal history of urinary calculi; Z79.890 Hormone replacement therapy; Z79.899 Other long term (current) drug therapy
CPT/HCPCS: 36415; 71045; 71045-26; 74177; 74177-26; 80048; 80053; 81001; 83605; 83690; 83735; 84145; 84484; 85025; 85379; 86140; 87040; 96361; 96365; 96375; 96376; 99285-25; A9270-GY; J1170; J1885; J2310; J2405; J2543; J3010; J3475; J3480; J7030; J7040; J7050; J7060; Q9967

== ENCOUNTER 2023-04-07 19:46 | Emergency (ER) | payer BC ==
[2023-04-07] MEDS ORDERED: Ondansetron 4 MG/2 ML SDV IVPUSH ONE (20:08)
[2023-04-07 20:15] LABS: BASOPHILS ABSOLUTE AUTO 0.02 K/mm3 (0.01-0.08); BASOPHILS PERCENT AUTO 0.2 % (0.1-1.2); EOSINOPHILS ABSOLUTE AUTO 0.02 K/mm3 (0.04-0.36); EOSINOPHILS PERCENT AUTO 0.2 (0.7-5.8); HEMATOCRIT 45.2 % (34.1-44.9); HEMOGLOBIN 15.4 gm/dl (11.2-15.7); IMMATURE GRAN ABSOLUTE AUTO 0.01 K/mm3 (0.00-0.10); IMMATURE GRAN PERCENT AUTO 0.1 % (<=1.0); LYMPHOCYTES PERCENT AUTO 15.5 % (19.3-51.7); MEAN CORPUSCULAR HEMOGLOBIN 32.1 pg (25.6-32.2); MEAN CORPUSCULAR HGB CONC 34.1 g/dl (32.2-35.5); MEAN CORPUSCULAR VOLUME 94.2 fl (79.4-94.8); MONOCYTES ABSOLUTE AUTO 0.85 K/mm3 (0.24-0.36); MONOCYTES PERCENT AUTO 9.4 % (4.7-12.5); NEUTROPHILS ABSOLUTE AUTO 6.73 K/mm3 (1.56-6.13); NEUTROPHILS PERCENT AUTO 74.6 % (34.0-71.1); PLATELET COUNT,PLT 226 K/mm3 (182-369); WHITE BLOOD CELL COUNT,WBC 9.03 K/mm3 (3.98-10.04)
[2023-04-07] MEDS ORDERED: Sodium Chloride 0.9% 1,000 ML IV SCH (20:15)
[2023-04-07] MEDS ORDERED: HYDROmorphone 0.5 MG/0.5 ML Syringe IVPUSH ONE ×3 (20:18→21:55)
[2023-04-07 20:33] LABS: A/G RATIO 1.1 (1-2); ANION GAP 18.1 (5-15); BILIRUBIN TOTAL 0.4 mg/dL (0.2-1.0); C-REACTIVE PROTEIN 2.6 mg/dL (<1.0); CALCIUM 9.4 mg/dL (8.5-10.1); EST CRCL DRUG DOSING (CG) 51.14 mL/min; MAGNESIUM 1.5 mg/dL (1.8-2.4); POTASSIUM,K 3.1 mEq/L (3.5-5.1); PROTEIN TOTAL,TP 7.6 g/dl (6.4-8.2)
[2023-04-07 20:56] LABS: LACTIC ACID 1.4 mmol/L (0.4-2.0)
[2023-04-07] MEDS ORDERED: Potassium Chloride 20 MEQ Tab.ER PO ONE (21:33)
[2023-04-07] MEDS ORDERED: Iopamidol 612 MG/ML 100 ML Bottle IVPUSH ONE (21:39)
[2023-04-07] MEDS ORDERED: Ketorolac 30 MG/ML SDV IVPUSH STA (21:50)
[2023-04-07] MEDS ORDERED: Tamsulosin 0.4 MG Cap.ER PO ONE (21:50)
[2023-04-07 22:13] LABS: APPEARANCE,URINE CLEAR (Clear); BILIRUBIN,URINE NEGATIVE (Negative); COLOR,URINE YELLOW (Yellow); GLUCOSE,URINE NEGATIVE (Negative); KETONES,URINE NEGATIVE (Negative); LEUKOCYTE ESTERASE,URINE NEGATIVE (Negative); NITRITE,URINE POSITIVE (Negative); OCCULT BLOOD,URINE 2+ (Negative); PROTEIN,URINE 1+ (Negative); UROBILINOGEN,URINE 0.2 (0.2-1.0)
[2023-04-07 22:35] LABS: BACTERIA,URINE MANY /hpf (FEW); MUCUS,URINE FEW /hpf (FEW); RBC,URINE 40-50 /hpf (0-5); WBC,URINE 0-5 /hpf (0-5)
[2023-04-07] MEDS ORDERED: Nitrofurantoin Monohydrate/Macrocrystalline 100 MG Cap PO STA (22:44)
[2023-04-07 23:59] VITALS: BP 97/69; PULSE 103
== END 2023-04-07 23:30 | disposition home or self-care (01) ==
LOC: JD.ED 19:46
DX: N13.2 Hydronephrosis with renal and ureteral calculous obstruction (principal); E87.6 Hypokalemia; E83.42 Hypomagnesemia; E03.9 Hypothyroidism, unspecified; N39.0 Urinary tract infection, site not specified; E78.00 Pure hypercholesterolemia, unspecified; I10 Essential (primary) hypertension; Z79.899 Other long term (current) drug therapy; Z79.82 Long term (current) use of aspirin
CPT/HCPCS: 36415; 74177; 80053; 81001; 83605; 83690; 83735; 85025; 86140; 87086; 87088; 87186; 93005; 96361; 96374; 96375; 96376; 99284; A9270; J1170; J1885; J2405; J7030; Q9967

== ENCOUNTER 2023-04-08 13:15 | Emergency (ER) | payer BC ==
[2023-04-08] MEDS ORDERED: Sodium Chloride 0.9% 1,000 ML IV ONE ×4 (13:20→16:30)
[2023-04-08] MEDS ORDERED: Metoclopramide 10 MG/2 ML SDV IVPUSH ONE (13:49)
[2023-04-08] MEDS ORDERED: fentaNYL 100 MCG/2 ML SDV IVPUSH ONE (13:49)
[2023-04-08] MEDS ORDERED: cefTRIAXone 2 GM in Sodium Chloride 0.9% 100 ML IV ONE (13:52)
[2023-04-08] MEDS ORDERED: VANCOmycin 2 GM/400 ML 2 GM in Premix Bag 1 BAG IV ONE (13:52)
[2023-04-08 13:55] VITALS: BP 82/47; PULSE 138
[2023-04-08] MEDS ORDERED: Dextrose 5%-0.9% NaCl 1,000 ML IV SCH (14:00)
[2023-04-08] MEDS ORDERED: VANCOmycin 1.75 GM/350 ML 1.75 GM in Premix Bag 1 BAG IV ONE (14:19)
[2023-04-08] MEDS ORDERED: Norepinephrine 4 MG/4 ML SDV ONE ×2 (14:31→18:35)
[2023-04-08] MEDS ORDERED: Dextrose 5% in Water 250 ML ONE ×2 (14:32→18:36)
[2023-04-08] MEDS ORDERED: Norepinephrine 4 MG in Dextrose 5% in Water 246 ML IV SCH ×2 (14:45)
[2023-04-08 15:11] LABS: HEMATOCRIT 41.1 % (34.1-44.9); HEMOGLOBIN 13.9 gm/dl (11.2-15.7); MEAN CORPUSCULAR HEMOGLOBIN 32.5 pg (25.6-32.2); MEAN CORPUSCULAR HGB CONC 33.8 g/dl (32.2-35.5); MEAN PLATELET VOLUME 9.9 fl (9.4-12.3); PLATELET COUNT,PLT 124 K/mm3 (182-369); RED BLOOD CELL COUNT 4.28 M/mm3 (3.98-5.22); WHITE BLOOD CELL COUNT,WBC 6.83 K/mm3 (3.98-10.04)
[2023-04-08 15:20] LABS: INR 1.15; PROTHROMBIN TIME 12.2 SECONDS (9.7-12.0)
[2023-04-08 15:32] LABS: LACTIC ACID 4.1 mmol/L (0.4-2.0)
[2023-04-08 15:33] LABS: ALBUMIN 3.2 g/dl (3.4-5.0); ANION GAP 20.1 (5-15); BILIRUBIN TOTAL 0.7 mg/dL (0.2-1.0); BUN/CREATININE RATIO 11.6 (14-18); CALCIUM 8.7 mg/dL (8.5-10.1); CREATININE 2.5 mg/dL (0.55-1.02); EST CRCL DRUG DOSING (CG) 20.46 mL/min; MAGNESIUM 1.2 mg/dL (1.8-2.4); POTASSIUM,K 3.1 mEq/L (3.5-5.1); PROTEIN TOTAL,TP 6.4 g/dl (6.4-8.2)
[2023-04-08 15:59] LABS: BAND PERCENT MAN 1 % (0-10); BASOPHILS PERCENT MAN 0 (0.1-1.2); EOSINOPHILS PERCENT MAN 0 % (0.7-5.8); LYMPHOCYTES % ATYPICAL MANUAL 2 %; LYMPHOCYTES PERCENT MAN 13 % (20-40); MONOCYTES PERCENT MAN 4 % (2-10)
[2023-04-08 16:00] LABS: PLATELET COUNT ESTIMATE DECREASED
[2023-04-08 16:24] LABS: APPEARANCE,URINE CLEAR (Clear); BILIRUBIN,URINE NEGATIVE (Negative); COLOR,URINE YELLOW (Yellow); GLUCOSE,URINE NEGATIVE (Negative); KETONES,URINE NEGATIVE (Negative); LEUKOCYTE ESTERASE,URINE NEGATIVE (Negative); NITRITE,URINE NEGATIVE (Negative); OCCULT BLOOD,URINE 1+ (Negative); PH,URINE 5.5 (5.0-8.0); PROTEIN,URINE 2+ (Negative); UROBILINOGEN,URINE 0.2 (0.2-1.0)
[2023-04-08] MEDS ORDERED: VASOPRESSIN IV SCH (17:45)
[2023-04-08] MEDS ORDERED: SODIUM CHLORIDE 0.9% IV SCH (17:45)
[2023-04-08] MEDS ORDERED: Magnesium Sulfate/Water 4 GM in Premix Bag 1 BAG IV ONE (18:23)
[2023-04-08 18:26] LABS: BACTERIA,URINE MODERATE /hpf (FEW); MUCUS,URINE FEW /hpf (FEW); WBC,URINE 0-5 /hpf (0-5)
[2023-04-08] MEDS ORDERED: Dextrose 5%-Lact Ringers w/KCl 1,000 ML IV SCH (18:30)
[2023-04-08] MEDS ORDERED: Potassium Chloride 10 MEQ in Premix Bag 1 BAG IV SCH (18:30)
== END 2023-04-08 19:05 ==
LOC: JD.ED 13:15
DX: A41.9 Sepsis, unspecified organism (principal); R65.21 Severe sepsis with septic shock; N39.0 Urinary tract infection, site not specified; E78.00 Pure hypercholesterolemia, unspecified; K21.9 Gastro-esophageal reflux disease without esophagitis; I10 Essential (primary) hypertension; E03.9 Hypothyroidism, unspecified; Z88.2 Allergy status to sulfonamides; Z88.5 Allergy status to narcotic agent
CPT/HCPCS: 36415; 71250; 74176; 80053; 81001; 82009; 83605; 83735; 84484; 85007; 85027; 85610; 85730; 86140; 87040; 87077; 87154; 87186; 93005; 96361; 96365; 96366; 96367; 96368; 96375; 99285; J0696; J2765; J3010; J3370; J3475; J3480; J3490; J7030; J7042; J7060; 36410; 93010